=== PATIENT | male | born 1960 | race Caucasian/White ===

== ENCOUNTER 2018-03-23 14:24 | Emergency (ER) | payer OTHER ==
[2018-03-23] MEDS ORDERED: NS 0.9% 1000 ML* 1,000 ML IV ONE ×2 (16:09)
--- NOTE | 2018-03-23 16:44 | ED ---
Complex/Multi-Sys Presentation - HPI Summary HPI Summary: 57 year old M referred from Dr. White to [facility] complains of weakness since last night. Symptoms aggravated by nothing. Symptoms alleviated by nothing. Patient reports shakiness, vomiting x1, sore throat, and decreased appetite. 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 He receives radiation and chemotherapy, after which he is usually hydrated with fluids to make him feel beter. Patient requests fluids for hydration. - History Of Current Complaint Chief Complaint: EDGeneral Time Seen by Provider: 03/23/18 16:30 Hx Obtained From: Patient Onset/Duration: Lasting Days - 1, Still Present Timing: Constant Aggravating Factor(s): Nothing Alleviating Factor(s): Nothing Associated Signs And Symptoms: Positive: Other - shakiness, vomiting x1, sore throat, decreased appetite - Allergies/Home Medications Allergies/Adverse Reactions: Allergies Allergy/AdvReac Type Severity Reaction Status Date / Time No Known Allergies Allergy Verified 03/23/18 14:40 Home Medications: Home Medications Bupropion XL* [Wellbutrin XL *] 150 mg PO DAILY 03/23/18 [History Confirmed ] Gabapentin [Gabapentin 250 mg/5ml] 600 mg PO TID 03/23/18 [History Confirmed ] OLANzapine TAB* [Zyprexa 10 MG TAB*] 10 mg PO DAILY PRN 03/23/18 [History Confirmed 03/23/18] PARoxetine HCL TAB* [Paxil TAB*] 40 mg PO DAILY 03/23/18 [History Confirmed ] Pantoprazole TAB (NF) [Protonix TAB (NF)] 40 mg PO DAILY 03/23/18 [History Confirmed 03/23/18] Prochlorperazine TAB* [Compazine Tab*] 10 mg PO Q6H PRN 03/23/18 [History Confirmed 03/23/18] Silver Sulfadiazine 1%* [SILVadine 1%*] 1 applic TOPICAL TID 03/23/18 [History Confirmed 03/23/18] Zolpidem Tartrate 10 mg PO BEDTIME 03/23/18 [History Confirmed 03/23/18] PMH/Surg Hx/FS Hx/Imm Hx Previously Healthy: No Cardiovascular History: Reports: Hx Hypercholesterolemia, Hx Hypertension Respiratory History: Reports: Other Respiratory Problems/Disorders - emphysema Sensory History: Reports: Hx Contacts or Glasses Opthamlomology History: Reports: Hx Contacts or Glasses Psychiatric History: Reports: Hx Depression - Cancer History Cancer Type, Location and Year: skin CA with metathesis to lymph nodes - Surgical History Surgery Procedure, Year, and Place: left parotidectomy and neck dissection 2017 Infectious Disease History: No Infectious Disease History: Denies: Traveled Outside the [place] in Last 30 Days - Family History Known Family History: Negative: Cardiac Disease, Hypertension, Diabetes - Social History Alcohol Use: Occasionally Hx Substance Use: No Substance Use Type: Reports: None Hx Tobacco Use: No Smoking Status (MU): Never Smoked Tobacco Review of Systems Positive: Other - shakiness Positive: Sore Throat Positive: Vomiting - x1, Other - decreased appetite Positive: Weakness All Other Systems Reviewed And Are Negative: Yes Physical Exam - Summary Physical Exam Summary: Appearance: The patient is well-nourished in no acute distress and in no acute pain. Skin: The skin is warm and dry and skin color reflects adequate perfusion. HEENT: The head is normocephalic and atraumatic. The pupils are equal and reactive. The conjunctivae are clear and without drainage. Nares are patent and without drainage. Mouth reveals moist mucous membranes and the throat is without erythema and exudate. The external ears are intact. The ear canals are patent and without drainage. The tympanic membranes are intact. Neck: The neck is supple with full range of motion and non-tender. There are no carotid bruits. There is no neck vein distension. Respiratory: Chest is non-tender. Lungs are clear to auscultation and breath sounds are symmetrical and equal. Cardiovascular: Heart is regular rate and rhythm. There is no murmur or rub auscultated. There is no peripheral edema and pulses are symmetrical and equal. Abdomen: The abdomen is soft and non-tender. There are normal bowel sounds heard in all four quadrants and there is no organomegaly palpated. Musculoskeletal: There is no back tenderness noted. Extremities are non-tender with full range of motion. There is good capillary refill. There is no peripheral edema or calf tenderness elicited. Neurological: Patient is alert and oriented to person, place and time. The patient has symmetrical motor strength in all four extremities. Cranial nerves are grossly intact. Deep tendon reflexes are symmetrical and equal in all four extremities. Psychiatric: The patient has an appropriate affect and does not exhibit any anxiety or depression. Triage Information Reviewed: Yes Vital Signs On Initial Exam: Initial Vitals Temp Pulse Resp BP Pulse Ox 98.7 F 76 14 134/82 97 03/23/18 14:35 03/23/18 14:35 03/23/18 14:35 03/23/18 14:35 03/23/18 14:35 Vital Signs Reviewed: Yes Diagnostics - Vital Signs Vital Signs Temp Pulse Resp BP Pulse Ox 03/23/18 14:35 98.7 F 76 14 134/82 97 - Laboratory Result Diagrams: 03/23/18 17:10 03/23/18 17:10 Lab Statement: Any lab studies that have been ordered have been reviewed, and results considered in the medical decision making process. Complex Multi-Symp Course/Dx Course Of Treatment: Mr. Hamlin presented to the emergency department concerned that he needed to receive IV fluids. He has been receiving chemotherapy and and periodically needing IV fluids. His labs were remarkable only for an ANC of [address] White was consulted. The patient did receive his fluids and felt better - Diagnoses Provider Diagnoses: Dehydration Discharge - Sign-Out/Discharge Documenting (check all that apply): Patient Departure - Discharge - Discharge Plan Condition: Stable Disposition: HOME Patient Education Materials: Dehydration (ED) Referrals: Sarina PATEL,[facility] [Primary Care Provider] - Additional Instructions: Follow up with your oncologist in 2 days. RETURN TO THE EMERGENCY DEPARTMENT FOR NEW OR WORSENING SYMPTOMS. - Billing Disposition and Condition Condition: STABLE Disposition: Home - Attestation Statements Document Initiated by Scribe: Yes Documenting Scribe: Kylee Guadalupe Provider For Whom Roman is Documenting (Include Credential): Trevin Polk MD Scribe Attestation: Kylee Saldaña, scribed for Trevin Polk MD on 03/24/18 at 2122. Scribe Documentation Reviewed: Yes Provider Attestation: The documentation as recorded by the scribeKylee accurately reflects the service I personally performed and the decisions made by me, Trevin Polk MD
[2018-03-23 17:22] LABS: Hematocrit 34 % (42-52); Hemoglobin 11.8 g/dl (14.0-18.0); Mean Corpuscular HGB Conc 34 g/dl (31-36); Mean Corpuscular Hemoglobin 29 pg (27-31); Mean Corpuscular Volume 83 fL (80-94); Platelet Count 155 10^3/ul (150-450); Red Blood Count 4.13 10^6/ul (4.00-5.40); Red Cell Distribution Width 17 % (10.5-15)
[2018-03-23 17:40] LABS: EGFR Non-African American 63.5 (>60)
[2018-03-23 17:49] LABS: ABS Basophils 0 10^3/ul (0-0.2); ABS Eosinophils 0 10^3/ul (0-0.6); ABS Lymphocytes 0.3 10^3/ul (1.0-4.8); ABS Monocytes 0.4 10^3/ul (0-0.8); ABS Neutrophils 0.7 10^3/ul (1.5-7.7); ABS Nucleated RBC 0 10^3/ul; Eosinophil % 2.4 % (0-6); Lymphocyte % 21.9 % (25-47); Nucleated Red Blood Cells % 0.3
[2018-03-23 20:17] VITALS: BP 145/92
[2018-03-25 10:42] LABS: White Blood Count 1.4 10^3/ul (3.5-10.8)
== END 2018-03-23 20:17 | disposition home or self-care (01) ==
LOC: ED 14:24
CPT/HCPCS: 36415; 80053; 85025; 85060